=== PATIENT | male | born 1965 | race Caucasian/White ===

== ENCOUNTER 2017-03-29 20:52 | Emergency (ER) | payer MEDICAID ==
--- NOTE | 2017-03-29 21:40 | C.PDOC ---
History Of Present Illness 51 year old male who presents to the ER with a complaint of sharp, continuous, left sided chest pain for the past 2 days that worsens with movement and deep inspiration. Patient denies Hx of similar episodes, risk factors, trauma, or precipitant leading to the pain. Time Seen by Provider: 03/29/17 21:22 Chief Complaint (Nursing): Chest Pain History Per: Patient History/Exam Limitations: no limitations Onset/Duration Of Symptoms: Days Current Symptoms Are (Timing): Still Present Associated Symptoms: denies: Nausea, Dyspnea, Diaphoresis, Syncope Modifying Factors: None Exacerbating Factors: Movement, Deep Breathing Alleviating Factors: None Recent travel outside of the [place]: No Past Medical History Reviewed: Historical Data, Nursing Documentation, Vital Signs Vital Signs: Last Vital Signs Temp 97.8 F 03/30/17 00:21 Pulse 76 03/30/17 00:21 Resp 18 03/30/17 00:21 BP 119/81 03/30/17 00:21 Pulse Ox 97 03/30/17 00:52 - Medical History PMH: No Chronic Diseases Surgical History: Cholecystectomy (Laparoscopic 2009) - [facility] Procedures INJECT/INFUSE NEC (09/10/14) Family History: States: Unknown Family Hx - Social History Hx Tobacco Use: No Hx Alcohol Use: Yes Hx Substance Use: Yes - Immunization History Hx Tetanus Toxoid Vaccination: No Hx Influenza Vaccination: No Hx Pneumococcal Vaccination: No Review Of Systems Except As Marked, All Systems Reviewed And Found Negative. Cardiovascular: Positive for: Chest Pain Respiratory: Negative for: Shortness of Breath Gastrointestinal: Negative for: Nausea, Vomiting Physical Exam - Physical Exam Appears: Non-toxic Skin: Normal Color, Warm, Dry Head: Atraumatic, Normacephalic Oral Mucosa: Moist Chest: Symmetrical, Tenderness (Reproducible) Cardiovascular: Rhythm Regular Respiratory: Normal Breath Sounds, No Rales, No Rhonchi, No Wheezing Gastrointestinal/Abdominal: Soft, No Tenderness Extremity: No Pedal Edema Neurological/Psych: Oriented x3, Normal Speech, Normal Cognition ED Course And Treatment - Laboratory Results Result Diagrams: 03/29/17 21:38 03/29/17 21:38 ECG: Interpreted By Me, Viewed By Me ECG Rhythm: Sinus Rhythm ECG Interpretation: Normal Interpretation Of ECG: Normal intervals, normal axis, no ST/T wave abnormalites Rate From EC O2 Sat by Pulse Oximetry: 97 Medical Decision Making Medical Decision Making: Impression: Chest pain Plan: EKG, blood work, CXR, toradol case s/o at 0100 pending repeat troponin, reevaluation and disposition Disposition - Disposition Disposition Time: 01:00 Condition: STABLE Forms: [facility] (Turkmen) - Clinical Impression Clinical Impression: Chest wall pain - Scribe Statement The provider has reviewed the documentation as recorded by the Scribe Po Crawley All medical record entries made by the Scribe were at my direction and personally dictated by me. I have reviewed the chart and agree that the record accurately reflects my personal performance of the history, physical exam, medical decision making, and the department course for this patient. I have also personally directed, reviewed, and agree with the discharge instructions and disposition. Physician Patient Turnover Patient Signed Over To: Riley Muse Handoff Comments: Pending reevaluation
[2017-03-29 21:42] LABS: BASO # 0.1 K/uL (0.0-0.2); EOS # 0.2 K/uL (0.0-0.7); EOS % 1.6 % (0.0-4.0); HEMATOCRIT 36.8 % (35.0-51.0); LYMPH # 3.2 K/uL (1.0-4.3); LYMPH % 30.9 % (20.0-40.0); MEAN CELL VOLUME 79.3 fL (80.0-94.0); MEAN CORPUSCULAR HEMOGLOBIN 26.7 pg (27.0-31.0); MEAN CORPUSCULAR HGB CONC 33.7 g/dL (33.0-37.0); MEAN PLATELET VOLUME 7.7 fL (7.2-11.7); MONO # 0.5 K/uL (0.0-0.8); MONO % 4.5 % (0.0-10.0); WHITE BLOOD COUNT 10.2 K/uL (4.8-10.8)
[2017-03-29 21:49] LABS: CHLORIDE 99 mmol/L (98-107)
[2017-03-29 21:50] LABS: POTASSIUM 3.8 mmol/L (3.6-5.2); SODIUM 133 mmol/L (132-148)
[2017-03-29 21:52] LABS: GFR AFRICAN-AMERICAN > 60
[2017-03-29 21:53] LABS: ALB/GLOB RATIO 1.1 (1.0-2.1); ALKALINE PHOSPHATASE 86 U/L (38-126); ALT/SGPT 55 U/L (21-72); AST/SGOT 41 U/L (17-59); BILIRUBIN,TOTAL 0.4 mg/dL (0.2-1.3); BLOOD UREA NITROGEN 12 mg/dL (9-20); CALCIUM 8.8 mg/dl (8.6-10.4); CARBON DIOXIDE 24 mmol/L (22-30); GLUCOSE,RANDOM 138 mg/dL (75-110); TOTAL PROTEIN 7.8 g/dL (6.3-8.3)
[2017-03-29] MEDS ORDERED: Morphine 4 MG/ML VIAL IV STA (22:25)
[2017-03-29] MEDS ORDERED: HYDROmorphone 0.5 mg/0.5 ml ISec IM STA (23:23)
[2017-03-29] MEDS ORDERED: HYDROmorphone 0.5 mg/0.5 ml ISec ONE (23:31)
[2017-03-30 02:13] VITALS: BP 109/85; PULSE 72; RESP 14; TEMP 98.2; O2SAT 98
--- NOTE | 2017-03-30 10:45 | RAD ---
PROCEDURE: CHEST RADIOGRAPH, 1 VIEW HISTORY: chest pain COMPARISON: 05/23/2015 FINDINGS: LUNGS: Mild venous congestion. PLEURA: No pneumothorax or pleural fluid seen. CARDIOVASCULAR: Normal. OSSEOUS STRUCTURES: No significant abnormalities. VISUALIZED UPPER ABDOMEN: Normal. OTHER FINDINGS: None. IMPRESSION: Mild venous congestion.
--- NOTE | 2017-03-30 15:24 | CARD ---
APPROVED REPORT EKG Measurement Heart [id number] <Conclusion> Normal sinus rhythm Normal ECG
== END 2017-03-30 02:53 | disposition home or self-care (01) ==
LOC: C.ER 20:52
DX: R07.89 Other chest pain (principal)
CPT/HCPCS: 71010; 80053; 82550; 82553; 83880; 84484; 85025; 85378; 93005; 96372; 96374; 99285; J1170; J1885; J2270

== ENCOUNTER 2017-12-15 10:47 | Emergency (ER) | payer MEDICAID, OTHER ==
[2017-12-15] MEDS ORDERED: Apap-Butalbital-Caffeine 325-50-40mg Tab PO STA (11:28)
--- NOTE | 2017-12-15 11:29 | C.PDOC ---
History Of Present Illness 52 y/o male presents to the ER complaining of pressure like headache which has been present since last night. Patient reports that the pain is to forehead. Patient also thinks his BP was high. He did not take any medication, because he has none at home. Denies having fever and chills. Time Seen by Provider: 12/15/17 11:16 Chief Complaint (Nursing): Headache History Per: Patient History/Exam Limitations: no limitations Onset/Duration Of Symptoms: Days Current Symptoms Are (Timing): Still Present Severity: Moderate Past Medical History Reviewed: Historical Data, Nursing Documentation, Vital Signs Vital Signs: Last Vital Signs Temp 97.8 F 12/15/17 12:14 Pulse 72 12/15/17 12:14 Resp 18 12/15/17 12:14 BP 137/83 12/15/17 12:14 Pulse Ox 98 12/15/17 12:19 - Medical History PMH: No Chronic Diseases Denies: Chronic Kidney Disease Surgical History: Cholecystectomy (Laparoscopic 2009) - [facility] Procedures INJECT/INFUSE NEC (09/10/14) Family History: States: No Known Family Hx - Social History Hx Tobacco Use: No Hx Alcohol Use: Yes Hx Substance Use: Yes - Immunization History Hx Tetanus Toxoid Vaccination: No Hx Influenza Vaccination: No Hx Pneumococcal Vaccination: No Review Of Systems Constitutional: Negative for: Fever, Chills, Weakness, Malaise Eyes: Negative for: Vision Change, Redness ENT: Negative for: Ear Pain, Nose Congestion, Throat Pain Cardiovascular: Negative for: Chest Pain, Palpitations Respiratory: Negative for: Cough, Shortness of Breath Gastrointestinal: Negative for: Abdominal Pain Skin: Negative for: Rash Neurological: Positive for: Headache. Negative for: Weakness, Numbness, Change in Speech, Confusion, Seizures, Dizziness Psych: Negative for: Anxiety, Depression, Withdrawal Physical Exam - Physical Exam Appears: Non-toxic, No Acute Distress Skin: Normal Color, Warm, Dry Head: Atraumatic, Normacephalic, No Tenderness, No Swelling Eye(s): bilateral: Normal Inspection, PERRL, EOMI, Other (no nystagmus) Ear(s): Bilateral: Normal (no erythema) Nose: Normal Oral Mucosa: Moist Neck: Normal ROM, Supple Chest: Symmetrical Cardiovascular: Rhythm Regular, No Murmur Respiratory: Normal Breath Sounds, No Rales, No Rhonchi, No Wheezing Extremity: Bilateral: Atraumatic, No Pedal Edema, Normal Color And Temperature, Normal ROM Pulses: Left Radial: Normal Neurological/Psych: Oriented x3, Normal Speech, Normal Cognition, Normal Cranial Nerves, No Cerebellar Signs, Normal Motor, Normal Sensation Gait: Steady ED Course And Treatment O2 Sat by Pulse Oximetry: 98 (RA) Pulse Ox Interpretation: Normal Medical Decision Making Medical Decision Making: Impression:Headache Plan: * Fioriect PO * Motrin PO On reassessment, patient is resting comfortably, and reports pain has improved. Patient has no neurologic deficit, photophobia, rash, fever, or nuchal rigidity. Patient was instructed to follow up with physician/clinic in 1-2 days. Disposition Counseled Patient/Family Regarding: Diagnosis, Need For Followup, Rx Given - Disposition Referrals: [facility] [Outside] [facility] [Outside] Disposition: HOME/ ROUTINE Disposition Time: 12:00 Condition: GOOD Additional Instructions: Vaya a pizarro mdico o la clnica en 2-5 aceves sin falta, para mas evaluacin. Bradner los medicamentos megan indicado. Volver a la araceli de emergencia en cualquier momento si los sntomas persisten o empeoran. Prescriptions: Acetaminophen/Butalbital/Caf [Fioricet] 1 tab PO TID PRN #20 tab PRN Reason: Headache Instructions: Headache, Adult (DC) Forms: [facility] (Djiboutian) Print Language: TURKISH - POA Present On Arrival: None - Clinical Impression Clinical Impression: Headache - PA / AUDIT SENIOR ASSOCIATE / Resident Statement MD/DO has reviewed & agrees with the documentation as recorded. - Scribe Statement The provider has reviewed the documentation as recorded by the Scribe Umair Ye Provider Attestation All medical record entries made by the Scribe were at my direction and personally dictated by me. I have reviewed the chart and agree that the record accurately reflects my personal performance of the history, physical exam, medical decision making, and the department course for this patient. I have also personally directed, reviewed, and agree with the discharge instructions and disposition.
[2017-12-15] MEDS ORDERED: Apap-Butalbital-Caffeine 325-50-40mg Tab ONE (11:47)
[2017-12-15 12:15] VITALS: BP 137/83; PULSE 72; RESP 18; TEMP 97.8
[2017-12-15 12:19] VITALS: O2SAT 98
== END 2017-12-15 12:21 | disposition home or self-care (01) ==
LOC: C.ER 10:47
DX: R51 Headache (principal)